=== PATIENT | female | born 1980 | race American Indian/Alaskan Native ===

== ENCOUNTER 2017-03-01 03:27 | Emergency (ER) | payer OTHER ==
[2017-03-01 04:35] VITALS: BP 146/75
[2017-03-01] MEDS ORDERED: MOTRIN PO ONE (05:17)
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
[2017-03-01] MEDS ORDERED: TRIPLE ANTIBIOTIC TP ONE (06:37)
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
--- NOTE | 2017-03-01 06:42 | XRay Report ---
FINAL REPORT PROCEDURE: XR WRIST 2V LT TECHNIQUE: LEFT wrist radiographs, AP and lateral views. HISTORY: LEFT WRIST PAIN COMPARISON: No prior studies are available for comparison. FINDINGS: Fracture(s)and/or Dislocation(s): None. Alignment: Normal. Joint space(s): Normal. Soft tissues: Normal. Bone mineralization: Normal. Foreign bodies: None. IMPRESSION: Normal Examination
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
--- NOTE | 2017-03-01 07:46 | Event Note ---
Date: 03/01/17 xray noted- nap pt given dc instructions which where reviewed with her. Dc home w mother.
== END 2017-03-01 07:45 | disposition home or self-care (01) ==
LOC: ED 03:27
DX: S81.012A Laceration without foreign body, left knee, initial encounter (principal); S43.402A Unspecified sprain of left shoulder joint, initial encounter; V43.52XA Car driver injured in collision with other type car in traffic accident, initial encounter; Y93.89 Activity, other specified; Y92.488 Other paved roadways as the place of occurrence of the external cause; Y99.8 Other external cause status
CPT/HCPCS: 72040; 99283; A6250